=== PATIENT | female | born 1940 | race African-American/Black ===

== ENCOUNTER 2017-03-25 10:51 | Emergency (ER) | payer MEDICARE, MEDICAID ==
[~2017-03-25] VITALS: Ht 152.4 cm; Wt 61.2 kg
[~2017-03-25 10:51] MED LIST: ASPI81CH43; ATIVAN; BUDE160A3; CLON0.1T; CRESTOR; FURO40TA; HYDR7.5T; METF-312; NIFE10CA3; PEPCID; POTA8TAB2; WARF5INJ
[2017-03-25 12:32] VITALS: BP 133/90
[2017-03-25] MEDS ORDERED: IPRATROPIUM BROM 0.5 MG/2.5ML INH SOL NEB ONE (13:15)
[2017-03-25] MEDS ORDERED: methylPREDNISolone SOD SUCC 125 MG/2 ML VL IV ONE (13:15)
[2017-03-25] MEDS ORDERED: ALBUTEROL SULF 2.5 MG/0.5ML(0.5%) NEB SOLN NEB ONE (13:15)
[2017-03-25 13:55] LABS: Basophils # (auto) 0 uL; Basophils % (auto) 0.3 % (0.0-2.0); DEFINITIVE VIEW TRANSMISSION; Eosinophils # (auto) 0.1 uL; Eosinophils % (auto) 0.6 % (0.0-7.0); Hematocrit 34.7 % (36.0-46.0); Hemoglobin 11.5 g/dL (12.2-16.2); Lymphocytes # (auto) 3.8 uL; Lymphocytes % (auto) 36.8 % (10.0-50.0); Mean Corpuscular Hemoglobin 26.8 pg (28.0-32.0); Mean Corpuscular Hgb Conc. 33.3 g/dL (32.0-36.0); Mean Corpuscular Volume 80.4 fL (80.0-100.0); Mean Platelet Volume 7.2 fL (7.4-10.4); Monocytes # (auto) 0.6 uL; Monocytes % (auto) 5.9 % (0.0-12.0); Neutrophils # (auto) 5.8 uL; Neutrophils % (auto) 56.4 % (37.0-80.0); Platelet Count (auto) 373 10^3/uL (140-450); White Blood Cell 10.3 10^3/uL (4.4-10.8)
[2017-03-25 13:58] LABS: Red Cell Distribution Width 20.3 % (11.6-16.0)
[2017-03-25 14:25] LABS: Anisocytosis Slight; Hypochromia Slight; Platelet Estimate Adequate
[2017-03-25 15:05] LABS: BUN/Creatinine Ratio 20.8; Bilirubin, Total 0.3 mg/dL (0.2-1.0); Calcium 9.3 mg/dL (8.5-10.1); Potassium 3.3 mmol/L (3.5-5.1)
[2017-03-25] MEDS ORDERED: POTASSIUM CHL 10% (20 MEQ/15ML) ORAL SOLN PO ONE (15:30)
== END 2017-03-25 15:32 | disposition home or self-care (01) ==
LOC: ER 10:51
DX: J45.909 Unspecified asthma, uncomplicated (principal); J44.9 Chronic obstructive pulmonary disease, unspecified; E11.9 Type 2 diabetes mellitus without complications; I10 Essential (primary) hypertension; M10.9 Gout, unspecified; K21.9 Gastro-esophageal reflux disease without esophagitis; Z45.2 Encounter for adjustment and management of vascular access device; E78.5 Hyperlipidemia, unspecified
CPT/HCPCS: 36415; 71020; 80053; 85025; 94640; 96374; 99285; J2930

== ENCOUNTER 2017-04-11 20:15 | Inpatient (IN) | payer MEDICARE, MEDICAID ==
[~2017-04-11] VITALS: Ht 149.9 cm; Wt 59.3 kg
[~2017-04-11 20:15] MED LIST changes: -ATIVAN; +ATIVAN PO; -METF-312; +METF-370; -PEPCID; +PEPCID PO
[2017-04-11 21:10] LABS: Basophils # (auto) 0.1 uL; Basophils % (auto) 0.4 % (0.0-2.0); DEFINITIVE Y; Eosinophils # (auto) 0 uL; Eosinophils % (auto) 0.1 % (0.0-7.0); Hematocrit 40.5 % (36.0-46.0); Hemoglobin 13.7 g/dL (12.2-16.2); Lymphocytes # (auto) 2.8 uL; Lymphocytes % (auto) 19.6 % (10.0-50.0); Mean Corpuscular Hemoglobin 26.8 pg (28.0-32.0); Mean Corpuscular Hgb Conc. 33.7 g/dL (32.0-36.0); Mean Corpuscular Volume 79.5 fL (80.0-100.0); Mean Platelet Volume 7.4 fL (7.4-10.4); Monocytes # (auto) 0.8 uL; Monocytes % (auto) 5.3 % (0.0-12.0); Neutrophils # (auto) 10.8 uL; Neutrophils % (auto) 74.6 % (37.0-80.0); Platelet Count (auto) 551 10^3/uL (140-450); Red Cell Distribution Width 19.6 % (11.6-16.0); White Blood Cell 14.4 10^3/uL (4.4-10.8)
[2017-04-11 21:24] LABS: Anion Gap 13 (5-15); BUN/Creatinine Ratio 23.9; Blood Urea Nitrogen 22 mg/dL (7-18); Calcium 8.9 mg/dL (8.5-10.1); Carbon Dioxide 24 mmol/L (21-32); Chloride 95 mmol/L (98-107); GFR African American 77 mL/min; GFR Non-African American 63 mL/min; Glucose 125 mg/dL (74-106); Potassium 4.3 mmol/L (3.5-5.1); Sodium 132 mmol/L (136-145)
[2017-04-11 21:37] LABS: B-Type Natriuretic Peptide 90.94 pg/mL (0-100); INR 0.98 (0.9-1.15); Partial Thromboplastin Time 25.1 sec (22.64-33.71); Prothrombin Time 10.7 sec (9.37-12.3)
[2017-04-11 21:38] LABS: Temperature: 23.3 C (20.0-25.0)
[2017-04-11 21:40] LABS: Alkaline Phosphatase 99 U/L (45-117); Aspartate Aminotransferase 41 U/L (15-37); Bilirubin, Total 0.7 mg/dL (0.2-1.0); Total Protein 9.2 g/dL (6.4-8.2)
[2017-04-11 21:52] LABS: Anisocytosis Slight; Ovalocytes FEW; Platelet Estimate Increased
[2017-04-11] MEDS ORDERED: SODIUM CHLORIDE 0.9% 500 ML IV ONE (22:45)
[2017-04-11] MEDS ORDERED: ONDANSETRON HCL 4 MG/2 ML VIAL IV ONE (23:00)
[2017-04-11 23:26] LABS: Urine Bilirubin Negative (Negative); Urine Blood Negative /uL (Negative); Urine Color Yellow (Yellow); Urine Glucose TRACE mg/dL (Normal); Urine Ketone 1+ (Negative); Urine Nitrite Negative (Negative); Urine RBC 1 /hpf (0 - 4); Urine Squamous Epithelial Cell FEW /hpf (<5); Urine Urobilinogen Normal (Negative)
[2017-04-12] MEDS ORDERED: IOHEXOL 350 MG/ML 100ML IJ ONE (00:59)
[2017-04-12] MEDS ORDERED: SODIUM CHLORIDE 0.9% 1,000 ML IV ONE (01:00)
[2017-04-12] MEDS ORDERED: ONDANSETRON HCL 4 MG/2 ML VIAL IV ONE (01:00)
[2017-04-12] MEDS ORDERED: MORPHINE SULFATE 4 MG/ML SYRG IV ONE (01:00)
[2017-04-12] MEDS ORDERED: SODIUM CHLORIDE 0.9% 1,000 ML IV SCH (04:23)
[2017-04-12] MEDS ORDERED: FAMOTIDINE (10MG/ML) 2ML VL IV SCH (04:30)
[2017-04-12] MEDS ORDERED: cefTRIAXone 1GM/50ML D5W 50 ML IV ONE (04:30)
[2017-04-12] MEDS ORDERED: DEXTROSE (50%) 50ML SYRG IV PRN (04:30)
[2017-04-12] MEDS ORDERED: cloNIDine HCL 0.1 MG TAB PO PRN (04:45)
[2017-04-12] MEDS ORDERED: cloNIDine HCL 0.1 MG TAB ONE (04:46)
[2017-04-12] MEDS: ACCU-CHEK COMFORT CURVE STRIP VI SCH ×3 (07:48→16:59)
[2017-04-12] MEDS: InsuLIN REG 1unit/0.01ml Soln (100units/ml) SC SCH ×3 (07:52→16:59)
[2017-04-12] MEDS ORDERED: ENOXAPARIN SOD 30 MG/0.3 ML SYRINGE SC SCH (10:00)
[2017-04-12] MEDS: FAMOTIDINE (10MG/ML) 2ML VL IV SCH (10:21)
[2017-04-12] MEDS: MORPHINE SULF INJ 2 MG/ML SYRINGE 1ML IV PRN ×3 (10:21→20:04)
[2017-04-12] MEDS: ONDANSETRON HCL 4 MG/2 ML VIAL IV PRN ×3 (10:22→20:04)
[2017-04-12] MEDS: METOPROLOL TARTRATE 50 MG TAB PO SCH ×2 (12:27→21:45)
[2017-04-12] MEDS: ENOXAPARIN SOD 40 MG/0.4 ML SYRINGE SC SCH (12:27)
[2017-04-12] MEDS ORDERED: traMADol HCL 50 MG TAB PO PRN (12:30)
[2017-04-12] MEDS ORDERED: ACETAMINOPHEN 325 MG TAB PO PRN (12:30)
[2017-04-12] MEDS: SODIUM CHLORIDE 0.9% 1,000 ML IV SCH ×2 (12:56→22:30)
[2017-04-12] MEDS ORDERED: PIPERACILLIN-TAZO 4.5GM 100 ML IV SCH ×2 (14:00)
[2017-04-12] MEDS: PIPERACILLIN-TAZO 4.5GM 100 ML IV SCH ×2 (14:35→21:45)
[2017-04-12 22:00] VITALS: BP 133/91
[2017-04-13] MEDS: ONDANSETRON HCL 4 MG/2 ML VIAL IV PRN ×2 (02:08→09:44)
[2017-04-13] MEDS: MORPHINE SULF INJ 2 MG/ML SYRINGE 1ML IV PRN ×3 (02:09→21:29)
[2017-04-13 05:00] VITALS: BP 152/98
[2017-04-13] MEDS: InsuLIN REG 1unit/0.01ml Soln (100units/ml) SC SCH ×5 (05:14→23:57)
[2017-04-13] MEDS: PIPERACILLIN-TAZO 4.5GM 100 ML IV SCH ×3 (05:27→21:29)
[2017-04-13] MEDS: ACCU-CHEK COMFORT CURVE STRIP VI SCH ×5 (05:27→23:57)
[2017-04-13 06:24] LABS: Basophils # (auto) 0.1 uL; Basophils % (auto) 0.6 % (0.0-2.0); CONDITION Y; DEFINITIVE Y; Eosinophils # (auto) 0 uL; Eosinophils % (auto) 0.1 % (0.0-7.0); Hematocrit 40.3 % (36.0-46.0); Hemoglobin 13.4 g/dL (12.2-16.2); Lymphocytes # (auto) 2.9 uL; Lymphocytes % (auto) 24.8 % (10.0-50.0); Mean Corpuscular Hemoglobin 26.9 pg (28.0-32.0); Mean Corpuscular Hgb Conc. 33.3 g/dL (32.0-36.0); Mean Corpuscular Volume 80.8 fL (80.0-100.0); Mean Platelet Volume 7.6 fL (7.4-10.4); Monocytes # (auto) 0.8 uL; Monocytes % (auto) 6.8 % (0.0-12.0); Neutrophils % (auto) 67.7 % (37.0-80.0); Platelet Count (auto) 473 10^3/uL (140-450); Red Cell Distribution Width 19.4 % (11.6-16.0); White Blood Cell 11.8 10^3/uL (4.4-10.8)
[2017-04-13 06:41] LABS: Albumin 2.6 g/dL (3.4-5.0); BUN/Creatinine Ratio 17.9; Calcium 8.4 mg/dL (8.5-10.1)
[2017-04-13 06:45] LABS: Bilirubin, Total 0.7 mg/dL (0.2-1.0)
[2017-04-13] MEDS: SODIUM CHLORIDE 0.9% 1,000 ML IV SCH ×2 (08:30→18:33)
[2017-04-13] MEDS ORDERED: POTASSIUM CHL 20MEQ/100ML 100 ML IV SCH (08:30)
[2017-04-13 09:00] VITALS: BP 144/78
[2017-04-13] MEDS ORDERED: cefTRIAXone 1GM/50ML D5W 50 ML IV SCH (09:00)
[2017-04-13] MEDS: FAMOTIDINE (10MG/ML) 2ML VL IV SCH (09:42)
[2017-04-13] MEDS: METOPROLOL TARTRATE 50 MG TAB PO SCH ×2 (09:43→21:29)
[2017-04-13] MEDS: ENOXAPARIN SOD 40 MG/0.4 ML SYRINGE SC SCH (09:43)
[2017-04-13] MEDS ORDERED: POTASSIUM CHL 20 Meq TABLET PO ONE (11:00)
[2017-04-13 13:00] VITALS: BP 150/69
[2017-04-13 17:00] VITALS: BP 151/73
[2017-04-13 22:00] VITALS: BP 142/102
[2017-04-13 23:25] VITALS: BP 125/72
[2017-04-14] MEDS: SODIUM CHLORIDE 0.9% 1,000 ML IV SCH ×3 (04:47→23:48)
[2017-04-14 05:00] VITALS: BP 141/106
[2017-04-14] MEDS: ACCU-CHEK COMFORT CURVE STRIP VI SCH ×4 (05:39→23:48)
[2017-04-14] MEDS: PIPERACILLIN-TAZO 4.5GM 100 ML IV SCH ×3 (05:39→22:16)
[2017-04-14] MEDS: InsuLIN REG 1unit/0.01ml Soln (100units/ml) SC SCH ×4 (05:45→23:48)
[2017-04-14] MEDS: MORPHINE SULF INJ 2 MG/ML SYRINGE 1ML IV PRN ×4 (06:09→22:16)
[2017-04-14 06:55] LABS: Basophils # (auto) 0.1 uL; Basophils % (auto) 0.6 % (0.0-2.0); CONDITION AutoValidated; DEFINITIVE SEE PRINTOUT; Eosinophils # (auto) 0 uL; Eosinophils % (auto) 0.3 % (0.0-7.0); Hematocrit 37.5 % (36.0-46.0); Hemoglobin 12.7 g/dL (12.2-16.2); Lymphocytes # (auto) 2.9 uL; Lymphocytes % (auto) 29.1 % (10.0-50.0); Mean Corpuscular Hemoglobin 27.1 pg (28.0-32.0); Mean Corpuscular Hgb Conc. 33.9 g/dL (32.0-36.0); Mean Corpuscular Volume 79.9 fL (80.0-100.0); Mean Platelet Volume 7.4 fL (7.4-10.4); Monocytes # (auto) 0.8 uL; Monocytes % (auto) 8.1 % (0.0-12.0); Neutrophils # (auto) 6.1 uL; Neutrophils % (auto) 61.9 % (37.0-80.0); Platelet Count (auto) 454 10^3/uL (140-450); Red Cell Distribution Width 19.2 % (11.6-16.0); White Blood Cell 9.9 10^3/uL (4.4-10.8)
[2017-04-14 07:17] LABS: BUN/Creatinine Ratio 16.3; Calcium 8.1 mg/dL (8.5-10.1); Potassium 3.3 mmol/L (3.5-5.1)
[2017-04-14 09:00] VITALS: BP 144/95
[2017-04-14] MEDS: ENOXAPARIN SOD 40 MG/0.4 ML SYRINGE SC SCH (10:04)
[2017-04-14] MEDS: FAMOTIDINE (10MG/ML) 2ML VL IV SCH (10:04)
[2017-04-14] MEDS: METOPROLOL TARTRATE 50 MG TAB PO SCH ×2 (10:04→22:16)
[2017-04-14] MEDS ORDERED: POTASSIUM CHL 20 Meq TABLET PO ONE (11:30)
[2017-04-14 12:03] VITALS: BP 108/69
[2017-04-14] MEDS: ONDANSETRON HCL 4 MG/2 ML VIAL IV PRN (12:13)
[2017-04-14 13:00] VITALS: BP 108/69
[2017-04-14] MEDS ORDERED: PROMETHAZINE HCL 25 MG/ML 1ML IV ONE (13:00)
[2017-04-14 16:44] VITALS: BP 115/78
[2017-04-14 21:15] VITALS: BP 134/92
[2017-04-15] MEDS: MORPHINE SULF INJ 2 MG/ML SYRINGE 1ML IV PRN (03:13)
[2017-04-15 05:00] VITALS: BP 104/75
[2017-04-15] MEDS: ACCU-CHEK COMFORT CURVE STRIP VI SCH (05:44)
[2017-04-15] MEDS: PIPERACILLIN-TAZO 4.5GM 100 ML IV SCH (05:44)
[2017-04-15] MEDS: InsuLIN REG 1unit/0.01ml Soln (100units/ml) SC SCH (05:53)
[2017-04-15 08:54] VITALS: BP 114/78
[2017-04-15] MEDS: METOPROLOL TARTRATE 50 MG TAB PO SCH (09:26)
[2017-04-15] MEDS: FAMOTIDINE (10MG/ML) 2ML VL IV SCH (09:26)
[2017-04-15] MEDS: ENOXAPARIN SOD 40 MG/0.4 ML SYRINGE SC SCH (09:27)
[2017-04-15] MEDS ORDERED: POTASSIUM CHL 20 Meq TABLET PO SCH (10:00)
[2017-04-15] MEDS ORDERED: POTASSIUM CHL 10% (20 MEQ/15ML) ORAL SOLN PO SCH (10:00)
[2017-04-15] MEDS: SODIUM CHLORIDE 0.9% 1,000 ML IV SCH (10:30)
[2017-04-16] MEDS ORDERED: ALBUAER3 IN (20:42)
[2017-04-19] MEDS ORDERED: POTA1TAB4 PO (10:39)
[2017-04-19] MEDS ORDERED: NEUTRA PO (10:39)
== END 2017-04-15 11:30 | disposition home or self-care (01) | DRG 391 ==
LOC: EDBD 20:18 → ER 20:18 → EDUNIT# 20:19 → OVERFLOW 20:19 → EAST 04-12 09:04 → CENTRAL 04-12 15:59
PROVIDERS: ADMIT Family Medicine; ATTEND Internal Medicine
DX: K52.9 Noninfective gastroenteritis and colitis, unspecified (principal); G93.40 Encephalopathy, unspecified; E86.0 Dehydration; E11.9 Type 2 diabetes mellitus without complications; D72.829 Elevated white blood cell count, unspecified; I10 Essential (primary) hypertension; J47.9 Bronchiectasis, uncomplicated; Z82.49 Family history of ischemic heart disease and other diseases of the circulatory system; Z83.3 Family history of diabetes mellitus; Z85.118 Personal history of other malignant neoplasm of bronchus and lung; Z88.1 Allergy status to other antibiotic agents
CPT/HCPCS: 36415; 51702; 71010; 71260; 74177; 80048; 80053; 81001; 82962; 83036; 83735; 83880; 84443; 84484; 85025; 85610; 85730; 93005; 96361; 96365; 96375; J0696; J1815; J2405; J2543; J3480; J3490

== ENCOUNTER 2017-04-15 18:05 | Emergency (ER) | payer MEDICARE, MEDICAID ==
[~2017-04-15] VITALS: Ht 149.9 cm; Wt 54.4 kg
[2017-04-15 18:34] VITALS: BP 138/62
[2017-04-15 20:03] LABS: Basophils # (auto) 0 uL; Basophils % (auto) 0.3 % (0.0-2.0); CONDITION AutoValidated; DEFINITIVE SEE PRINTOUT; Eosinophils # (auto) 0 uL; Hemoglobin 13.2 g/dL (12.2-16.2); Monocytes # (auto) 0.8 uL; Monocytes % (auto) 6.6 % (0.0-12.0)
[2017-04-15 20:12] LABS: Eosinophils % (auto) 0.1 % (0.0-7.0); Hematocrit 39.8 % (36.0-46.0); Lymphocytes # (auto) 2.4 uL; Lymphocytes % (auto) 19.9 % (10.0-50.0); Mean Corpuscular Hemoglobin 27.1 pg (28.0-32.0); Mean Corpuscular Hgb Conc. 33.1 g/dL (32.0-36.0); Mean Platelet Volume 7.5 fL (7.4-10.4); Neutrophils # (auto) 8.6 uL; Neutrophils % (auto) 73.1 % (37.0-80.0); Platelet Count (auto) 461 10^3/uL (140-450); Red Cell Distribution Width 19.1 % (11.6-16.0); White Blood Cell 11.8 10^3/uL (4.4-10.8)
[2017-04-15 20:37] LABS: Albumin 2.8 g/dL (3.4-5.0); Anion Gap 10 (5-15); Aspartate Aminotransferase 24 U/L (15-37); BUN/Creatinine Ratio 16.2; Blood Urea Nitrogen 12 mg/dL (7-18); Calcium 8.2 mg/dL (8.5-10.1); Carbon Dioxide 25 mmol/L (21-32); Chloride 98 mmol/L (98-107); GFR African American 99 mL/min; GFR Non-African American 82 mL/min; Glucose 107 mg/dL (74-106); Magnesium 1.9 mg/dL (1.6-2.6); Sodium 133 mmol/L (136-145)
[2017-04-15 20:41] LABS: Alkaline Phosphatase 88 U/L (45-117); Bilirubin, Total 0.5 mg/dL (0.2-1.0); Total Protein 7.8 g/dL (6.4-8.2)
[2017-04-15 20:47] LABS: Potassium 2.9 mmol/L (3.5-5.1)
[2017-04-16] MEDS ORDERED: ALBUAER3 IN (20:42)
[2017-04-19] MEDS ORDERED: NEUTRA PO (10:39)
[2017-04-19] MEDS ORDERED: POTA1TAB4 PO (10:39)
== END 2017-04-15 21:03 | disposition left against medical advice (07) ==
LOC: ER 18:11
DX: R07.89 Other chest pain (principal); Z53.21 Procedure and treatment not carried out due to patient leaving prior to being seen by health care provider
CPT/HCPCS: 36415; 71010; 80053; 82962; 83735; 84484; 85025